=== PATIENT | male | born 1935 | race Caucasian/White ===

== ENCOUNTER 2020-02-14 01:51 | Outpatient (CLI) | payer MEDICARE, SELFPAY ==
[2020-02-14 18:01] LABS: SARS-CoV-2 RNA PCR Negative
== END 2020-02-14 01:52 | disposition home or self-care (01) ==
LOC: ANHCOVIDDT 01:51
PROVIDERS: PCP Internal Medicine; Visit Provider Internal Medicine Gastroenterology
DX: Z01.812 Encounter for preprocedural laboratory examination (principal); Z20.828 Contact with and (suspected) exposure to other viral communicable diseases
CPT/HCPCS: 87635; C9803; U0003

== ENCOUNTER 2020-02-17 04:18 | Day surgery (SDC) | payer MEDICARE, SELFPAY ==
[2020-02-12 09:48] VITALS: BMI 26.5
[2020-02-17 08:06] VITALS: BP 148/87; PULSE 87; RESP 18; TEMP 36.4; O2SAT 100; BMI 27.8
--- NOTE | 2020-02-17 08:15 | WPDANESEPPF ---
Anes - Initial Pre Proc Eval Procedure: Operation Date: 02/17/20 09:00 Proposed Procedures p Esophagogastroduodenoscopy - Silvestre Herrera MD Date/Time: 02/17/20 08:15 Surgeon: Silvestre Herrera MD Pre Op Diagnosis: GI BLeed,Melena,Hx of Gastric Ulcer Patient Data Age: 84 Gender: M Height: 5 ft 10 in Weight: 87.9 kg Last Vital Signs Temp 97.5 F L 02/17/20 08:06 Pulse 87 02/17/20 08:06 Resp 18 02/17/20 08:06 BP 148/87 H 02/17/20 08:06 Pulse Ox 100 02/17/20 08:06 Allergies Allergy/AdvReac Type Severity Reaction Status Date / Time No Known Allergies Allergy Verified 02/17/20 07:57 Home Medications Medication Instructions Recorded Confirmed Type aspirin [Aspir-81] 81 mg PO DAILY 06/16/19 02/12/20 History calcium carbonate [Calcium 600] 1,200 mg PO DAILY 06/16/19 02/12/20 History glucos sul 0PVa-qnw-uwtou-C-Mn 3 cap PO DAILY 06/16/19 02/12/20 History [Glucosamine Chondroitin] pantoprazole 40 mg PO BID 06/16/19 02/12/20 History mhgrpyoz-bmg-lctkq-vit K-lycop 1 tablet PO DAILY 02/12/20 02/12/20 History [Men's Multivitamin] Patient hx anesthesia problems: none Family hx anesthesia problems: none PMFSH Past Medical History Medical History (Updated 02/17/20 @ 08:14 by Sebastian Arreola MD) Bronchitis CVA (cerebral vascular accident) signs of CVA; no etiology; has right sided weakness GERD (gastroesophageal reflux disease) Anes - Eval Final PreProcedure Day of Procedure 02/17/20 08:15 Patient weight: normal Heart: regular rate and rhythm Lungs: clear to auscultation Airway: Mallampati scale class II Neurological: alert and oriented Last oral intake: >/= 8 hours ASA classification: III Emergent: no Anesthetic plan: proceed Anesthesia type and monitoring: general GIVS and standard monitoring Informed Consent: The patient's anesthetic plan and its attendant risks and benefits were discussed with the patient/family/POA. Questions were solicited and answers provided to the satisfaction of the patient/family/POA.
[2020-02-17] MEDS: LACTATED RINGERS 1,000 ML 150 ML IV CONT (08:24)
--- NOTE | 2020-02-17 08:24 | P.CONGI_ITS ---
Assessment and Plan Assessment and plan (1) Melena: Code(s): K92.1 - Melena Status: Acute Assessment and Plan: Patient with recent passage of melena associated with decrease in hemoglobin consistent with recent GI blood loss. Patient has a history of gastric ulcer last year. Plan is to restart the proton pump inhibitor which has been done already. Follow-up EGD advised at this time. Continue monitor hemoglobin electively as an outpatient. Further recommendations will be given after endoscopy. (2) History of gastric ulcer: Code(s): Z87.19 - Personal history of other diseases of the digestive system Status: Acute (3) Anemia: Code(s): D64.9 - Anemia, unspecified Status: Acute GI Consult Note Consult date/time: 02/17/20 08:24 HPI: Mark Payton is a 84 year old male Seen in evaluation at the request of Dr. Dafne Wyman. Patient has a history of gastric ulcer in March of 2019. 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 Patient initially maintained on pantoprazole this ultimately was discontinued for 1 month. In early January of 2020 patient began to feel weak and dizzy and pass some black melenic stools. His pantoprazole was restarted. Patient refused going to the hospital. He states that his bowel habits are repeat turn to normally presents today for follow-up EGD. Patient denies any abdominal pain. Denies any heartburn. He denies any difficulty swallowing. His stools as stated return to normal color. Recent blood count reveals a hemoglobin of 9 .2, hematocrit 29, MCV of 86. Review of Systems Review of Systems: All systems reviewed & are unremarkable except as noted in HPI and below PMFSH Past Medical History Medical History Bronchitis CVA (cerebral vascular accident) signs of CVA; no etiology; has right sided weakness GERD (gastroesophageal reflux disease) Meds Home Medications and Allergies Home Medications Medication Instructions Recorded Confirmed Type aspirin [Aspir-81] 81 mg PO DAILY 06/16/19 02/12/20 History calcium carbonate [Calcium 600] 1,200 mg PO DAILY 06/16/19 02/12/20 History glucos sul 9ZNg-qwx-zrsav-C-Mn 3 cap PO DAILY 06/16/19 02/12/20 History [Glucosamine Chondroitin] pantoprazole 40 mg PO BID 06/16/19 02/12/20 History cnrxyech-kds-uebss-vit K-lycop 1 tablet PO DAILY 02/12/20 02/12/20 History [Men's Multivitamin] Allergies Allergy/AdvReac Type Severity Reaction Status Date / Time No Known Allergies Allergy Verified 02/17/20 07:57 Vital Signs Vital Signs - 24 hr 02/17/20 08:06 Temperature 97.5 F L Pulse Rate 87 Respiratory Rate 18 Blood Pressure 148/87 H Pulse Oximetry 100 Exam Narrative: Exam Narrative: Physical exam reveals patient to be alert. Vital signs stable. HEENT exam unremarkable. He is anicteric. Lungs are clear to auscultation and percussion. Heart is without murmur or extra sounds. Abdominal exam bowel sounds are present soft nontender with no organomegaly. Rectal exam is deferred at this time.
[2020-02-17 08:54] VITALS: BP 128/80; PULSE 77; RESP 22; O2SAT 100
[2020-02-17 09:04] VITALS: BP 134/76; PULSE 74; RESP 19; O2SAT 100
[2020-02-17 09:14] VITALS: BP 136/87; PULSE 75; RESP 15; O2SAT 100
== END 2020-02-17 09:25 | disposition home or self-care (01) ==
PROVIDERS: PCP Internal Medicine; Visit Provider Internal Medicine Gastroenterology
PROC: 0DJ08ZZ Inspection of Upper Intestinal Tract, Via Natural or Artificial Opening Endoscopic (ICD-10-PCS; CPT 43235; principal; 2020-02-17 09:00)
DX: K92.1 Melena (principal); Z87.19 Personal history of other diseases of the digestive system; D62 Acute posthemorrhagic anemia; Q39.4 Esophageal web; K29.60 Other gastritis without bleeding; K25.3 Acute gastric ulcer without hemorrhage or perforation
CPT/HCPCS: 43239; 88305; J2704; J7120

== ENCOUNTER 2020-12-06 00:25 | Emergency (ER) | payer MEDICARE, SELFPAY ==
[2020-12-06] VITALS (37 sets, daily range): BP systolic 109–167; BP diastolic 74–135; PULSE 87–98; RESP 15–27; TEMP 36.2; O2SAT 91–97
--- NOTE | ~2020-12-06 | CT_ITS ---
EXAMINATION:CT diagnostic chest wo con DATE: 12/06/2020 01:42 INDICATION: Chest injury. Fall. TECHNIQUE: Computed tomography (CT) of the chest was performed without intravenous contrast. Automate d exposure control and iterative reconstruction technique were employed. The dose-length product (DLP ) was 260.40 mGy-cm. COMPARISON: Chest 2 views 11/24/2014 FINDINGS: There is mild atelectasis bilaterally. No pleural effusion. The heart size is normal. There are coronary artery calcifications. No pericardial effusion. There is ectasia of ascending aorta aspen suring 4.3 cm. There is a moderate-sized sliding hiatal hernia. There are cysts in the liver measurin g up to 1.8 cm. There is levoscoliosis of upper thoracic spine. There are chronic burst fractures of T10 T12 and L1. There is mild chronic anterior wedging of T7 and T8 vertebral bodies. There are chron ic burst fractures of L1 and L2. IMPRESSION: 1. Moderate-sized sliding hiatal hernia. 2. 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 Reviewed, dictated and finalized at location A.
--- NOTE | ~2020-12-06 | CT_ITS ---
EXAMINATION: CT lumbar spine wo con DATE: 12/06/2020 01:42 INDICATION: Low back injury. TECHNIQUE: Computed tomography (CT) of the lumbar spine was performed without intravenous contrast. A utomated exposure control and iterative reconstruction technique were employed. The dose-length produ ct was 714.24 mGy-cm. COMPARISON: None FINDINGS: There is 5 degrees dextrocurvature of lumbar spine. There is a chronic burst fracture of T1 2 with 3/5 loss of height centrally and retropulsion of bone 3 mm images of the spinal canal. There i s a chronic burst fracture of L1 with 3/5 loss of height and 3 mm retropulsion of bone into central s randolph canal. There is a compression fracture of L3 with 1/5 loss of height. There is moderately decre ased disc height at L3-L4 and L5-S1 and mildly decreased disc height at L1-L2, L2-L3, and L4-L5. The following disc levels are specifically discussed: L1-L2: The disc is bulging. There is mild bilateral facet joint osteoarthritis. There is moderate rig ht and mild left neural foraminal stenosis. There is mild central canal stenosis. L2-L3: The disc is bulging. There is moderate bilateral facet joint osteoarthritis. There is mild rig ht and moderate left neural foraminal stenosis. There is mild central canal stenosis. L3-L4: The disc is bulging. There is mild bilateral facet joint osteoarthritis. There is moderate sneha ateral neural foraminal stenosis. There is moderate central canal stenosis. L4-L5: The disc is bulging. There is severe bilateral facet joint osteoarthritis. There is moderate b ilateral neural foraminal stenosis. There is severe central canal stenosis. L5-S1: The disc is bulging. There is severe bilateral facet joint osteoarthritis. There is mild bilat eral neural foraminal stenosis. There is mild central canal stenosis. IMPRESSION: 1. Acute L3 compression fracture. 2. Severe lumbar spondylosis. Reviewed, dictated and finalized at location A.
--- NOTE | 2020-12-06 00:41 | ECG_ITS ---
Measurements Intervals [place] Rate: 89 P: 44 FL: 186 QRS: -20 QRSD: 102 T: 24 QT: 365 QTc: 446 Interpretive Statements SINUS RHYTHM ATRIAL PREMATURE COMPLEXES INCOMPLETE RIGHT BUNDLE BRANCH BLOCK INFERIOR INFARCT, AGE INDETERMINATE ABNORMAL ECG Electronically Signed On 12-06-2020 7:18:54 CDT by Alexi Mckeon D.O.
--- NOTE | 2020-12-06 01:14 | ED.FALL ---
HPI - Fall General Chief Complaint: Fall Stated Complaint: back pain/ fall Time Seen by Provider: 12/06/20 01:06 Source: RN notes reviewed History of Present Illness HPI Narrative: Patient presents to emergency department from home via EMS for a fall. Patient says he was walking on a rug when he began to slip backwards. He states that he began to stumble backwards trying to catch himself and fell landing on his buttocks and his back he complains of pain in the lower back as well as pain in the anterior chest he denies striking his head or any loss of consciousness he states the chest pain is located over the midsternal lower chest and is worse with movement and deep inspiration she is at lower back pain is worse with movement as well he denies any vision changes, shortness of breath, abdominal pain nausea vomiting diarrhea numbness or tingling in the extremities or any other symptoms Related Data Home Medications Medication Instructions Recorded Confirmed aspirin [Aspir-81] 81 mg PO DAILY 06/16/19 02/12/20 calcium carbonate [Calcium 600] 1,200 mg PO DAILY 06/16/19 02/12/20 glucos sul 7GTf-qqa-wmlyl-C-Mn 3 cap PO DAILY 06/16/19 02/12/20 [Glucosamine Chondroitin] pantoprazole 40 mg PO BID 06/16/19 02/12/20 deavvboc-kkk-owffo-vit K-lycop 1 tablet PO DAILY 02/12/20 02/12/20 [Men's Multivitamin] Allergies Allergy/AdvReac Type Severity Reaction Status Date / Time No Known Allergies Allergy Verified 02/17/20 07:57 Review of Systems Review of Systems: Narrative: Gen.: Denies fevers or chills Eyes: Denies eye pain or visual change ENT: Denies congestion Respiratory: Denies shortness of breath or cough CV: Reports anterior chest pain GI: Denies abdominal pain nausea, emesis or diarrhea Musculoskeletal: Reports low back pain Neuro: Denies numbness, tingling, weakness or focal weakness Skin: Denies rash Except as documented, all other systems reviewed and negative [facility] Past Medical History Medical History (Updated 12/06/20 @ 05:04 by John Perez DO) Bronchitis CVA (cerebral vascular accident) signs of CVA; no etiology; has right sided weakness GERD (gastroesophageal reflux disease) Social History Social History (Updated 12/06/20 @ 03:45 by John Perez DO) Smoking status: Never smoker Exam Narrative: Exam Narrative: APPEARANCE: No acute distress, nontoxic, resting in bed EYES: EOMI, PERRL HEENT: Normocephalic, atraumatic, OMM Neck: Supple no midline tenderness palpation RESPIRATORY: No respiratory distress Clear to auscultation bilaterally with no rhonchi wheezing or rales. CARDIOVASCULAR: Regular rate and rhythm without murmurs rubs or gallops. Chest: Tender palpation over the anterior inferior chest just to the right of the sternum with point tenderness present pain increased with deep respiration and movement of the torso ABDOMINAL: Soft, nontender, nondistended, no rebound or guarding MUSCULOSKELETAl: Moves all extremities. No clubbing, cyanosis or edema. Back: No midline thoracic lumbar transportation for patient bilateral paravertebral muscles L2-5 NEURO: Awake and alert x 3. Following commands, speech normal, no focal deficits SKIN:: Warm, dry. No rashes lesions or abrasions PSYCHIATRIC: Normal affect/mood, Course Course Emergency Course: Discussed with radiologist patient's fracture he states that this is a stable compression fracture Patient states pain is improved with tramadol Patient able to get up and ambulate in the emergency department with no difficulty patient son present states that patient was at home with son and son's Discussed with patient results of workup and diagnosis. Discussed need for follow-up with primary care, proper use of medication, and reasons to return to the emergency department. Patient understands and agrees to current treatment plan Vital Signs Vital signs: Vital Signs Temperature 97.2 F L 12/06/20 00:24 Pulse Rate 89 12/06/20 00:24 Respirator
[2020-12-06] MEDS: ACETAMINOPHEN 500 MG TABLET 1000 MG PO (01:51)
[2020-12-06] MEDS: traMADol HCL (*CRX) 50 MG TABLET PO (03:13)
[2020-12-06 03:39] LABS: Basophils Absolute Auto 0.1 K/mm3 (0.0-0.1); Basophils Percent Auto 0.7 % (0.2-1.2); Eosinophils Absolute Auto 0.1 K/mm3 (0-0.3); Eosinophils Percent Auto 0.6 % (0-4.4); Hematocrit 42.9 % (42.0-52.0); Hemoglobin 13.9 g/dL (14.0-18.0); Immature Granulocyte Percent A 0.7 % (0-0.5); Lymphocytes Absolute Auto 1.53 K/mm3 (0.9-3.2); Lymphocytes Percent Auto 10.9 % (18.3-44.2); Mean Corpuscular HGB Conc 32.4 g/dl (32-36); Mean Corpuscular Hemoglobin 27.7 pg (26-34); Mean Corpuscular Volume 85.5 fl (80-100); Mean Platelet Volume 10.3 fl (7.4-10.4); Monocytes Absolute Auto 0.8 K/mm3 (0.1-0.6); Monocytes Percent Auto 5.5 % (2.6-8.5); Neutrophils Absolute Auto 11.5 K/mm3 (1.3-6.7); Neutrophils Percent Auto 81.6 % (45.5-73.1); Platelet Count Result 252 k/mm3 (150-375); Red Blood Count 5.02 M/mm3 (4.6-6.20); Red Cell Distribution Width 14.6 % (11.5-14.5); White Blood Count 14.1 K/mm3 (4.5-10.0)
[2020-12-06 03:50] LABS: INR 0.9
[2020-12-06 03:51] LABS: Partial Thromboplastin Time 28.3 SECONDS (22.3-36.8)
[2020-12-06 04:02] LABS: Alanine Aminotransferase 17 U/L (4-50); Albumin Level 4.1 g/dL (3.5-5.1); Alkaline Phosphatase 89 U/L (38-126); Anion Gap 8 mmol/L (8-16); Aspartate Amino Transferase 30 U/L (17-59); Bilirubin,Total 0.4 mg/dL (0.2-1.3); Blood Urea Nitrogen 24 mg/dL (9-20); Calcium 9.5 mg/dL (8.4-10.2); Carbon Dioxide 26 mmol/L (22-30); Chloride 106 mmol/L (98-107); Estimated CRCL calculation 44 ml/min; Estimated Glomerular Filt Rate > 60; Glucose 118 mg/dL (75-110); Potassium 4.2 mmol/L (3.4-5.0); Sodium 140 mmol/L (137-145)
[2020-12-06 04:13] LABS: Troponin I < 0.012 ng/mL (0.000-0.034)
== END 2020-12-06 06:10 | disposition home or self-care (01) ==
PROVIDERS: Emergency Provider Emergency Medicine; PCP Internal Medicine
DX: S32.048A Other fracture of fourth lumbar vertebra, initial encounter for closed fracture (principal); R07.89 Other chest pain; Z79.82 Long term (current) use of aspirin; I69.951 Hemiplegia and hemiparesis following unspecified cerebrovascular disease affecting right dominant side; K21.9 Gastro-esophageal reflux disease without esophagitis; M47.816 Spondylosis without myelopathy or radiculopathy, lumbar region; W01.0XXA Fall on same level from slipping, tripping and stumbling without subsequent striking against object, initial encounter; I49.1 Atrial premature depolarization; I45.10 Unspecified right bundle-branch block; R94.31 Abnormal electrocardiogram [ECG] [EKG]
CPT/HCPCS: 36415; 71250; 72131; 80053; 84484; 85025; 85610; 85730; 93005; 99284; A9270

== ENCOUNTER 2020-12-13 10:31 | Outpatient (CLI) | payer MEDICARE, SELFPAY ==
--- NOTE | ~2020-12-13 | US_ITS ---
EXAMINATION: US venous doppler LE RT EXAM DATE: 12/13/2020 11:00 INDICATION: Right leg edema. TECHNIQUE: Multiple grayscale, color flow and Doppler images of the right lower extremity deep venous system were obtained and reviewed. There is no prior study for comparison. FINDINGS: The right common femoral, femoral and profunda veins demonstrate normal color flow, respira tory variation, augmentation and compressibility. Compressibility, color flow confirmed within the r ight popliteal, posterior tibial, peroneal, and greater saphenous veins. IMPRESSION: 1. No right lower extremity deep venous thrombosis. Reviewed, dictated and finalized at location B.
== END 2020-12-13 10:32 | disposition home or self-care (01) ==
PROVIDERS: PCP Internal Medicine; Visit Provider Internal Medicine
DX: R60.0 Localized edema (principal)
CPT/HCPCS: 93971

== ENCOUNTER 2021-03-01 12:45 | Outpatient (RCR) | payer MEDICARE, SELFPAY ==
--- NOTE | 2021-02-01 13:49 | PTOPEVAL ---
Thank you for referring Mark Payton to [facility].? The patient is scheduled to be seen for therapy? 1 x/week for 8 weeks. Please review, sign, date and return this plan of care ANDREW. I agree with and certify that the following plan of care is medically necessary. Referring Physician Date Attending Provider: Barron Wyman, Diagnosis balance impairment, gt abnormalities Onset 12/06/20 Cause fall Additional Evaluation Detail He has chair lift with multiple ww on each level. He does not performing the cooking or cleaning. MRI from from fall: 1. Acute L3 compression fracture. 2. Severe lumbar spondylosis Subjective Information Pt had a fall backwards on 12/06 Query Text:As Reported By Patient. He was using a cane when Family the fall happened. He reports a decline in balance over the past few months. Reports his reaction time has decreased. He spends most of day on the computer. He is now performing seated exercise given by his recent therapist. He is performing 1-2x/day.He reports difficulty getting off low surfaces or seats without arm support. Prior Level of Function Home Setting Home Type House Living Situation With Spouse Mobility Assistive Devices (Used Last 3 Walker, Wheeled Months) Pain Assessment Self Report Pain Level 0 Pain Score Pain Score 0: Self Report Lower Extremity Muscle Strength Testing General Lower Extremity Strength Gross Lower Extremity Strength grossly 4/5 in seated position Upper Extremity Muscle Strength Testing General Upper Extremity Strength Gross Upper Extremity Strength Comments grossly 4-/5 sneha shoulders Transfer Assessment Chair Transfer Assessment Chair Transfer Assistive Devices None Ambulation Assistive Devices Walker, Wheeled Chair Transfer Destination Ambulatory Sit to Stand Chair Transfer Ability Independent Chair Transfer Comments several attempts to stand from regular chair with arms. Balance Assessment INMAN Balance Evaluation Total Score (27/56 points) Time Up Go (TUG) Timed Up and Go Test (TUG) (Seconds) 34 Assistive Devices Walker, Wheeled 5 Time Sit to Stand Time in Seconds 22 5 Time Si
--- NOTE | 2021-03-01 14:09 | PTOPEVAL ---
Discharge Summary Therapy Note Thank you for referring Mark Payton to [facility].? He has attended 6 therapy visits to address functional mobility, balance and strengthening. He demonstrates improved functional mobility and decreased fall risk. He has partially achieved his therapy goals at this time. See summary below for detail of progress. Will DC skilled therapy services at this time. Please review, sign, date and return this discharge summary ANDREW. I agree with and certify that the following plan of care is medically necessary. Referring Physician Date Attending Provider: Barron Wyman, Problem Diagnosis balance impairment, gt abnormalities Onset 12/06/20 Cause fall Additional Evaluation Detail He has chair lift with multiple ww on each level. He does not performing the cooking or cleaning. MRI from from fall: 1. Acute L3 compression fracture. 2. Severe lumbar spondylosis Subjective Information He is using the walker at home. Query Text:As Reported By Patient/ Denies any falls at home Family since start of therapy. He does feel the band exercises help, but has not been consistent with performing. He cont to spend most of day on the computer. He is not consistent with getting up every 30 minutes. Pain Assessment Timing of Pain Assessment Timing of Pain Assessment Pre-Treatment Self Report Self Report Pain Level 0 Pain Score Pain Score 0: Self Report Lower Extremity Muscle Strength Testing General Lower Extremity Strength Gross Lower Extremity Strength grossly 4+/5 in seated position Balance Assessment INMAN Balance Evaluation Total Score (34/56 points) Timed Up and Go Test (TUG) (Seconds) 42 Assistive Devices Walker, Wheeled Comments increased time required with turns 5 Time Sit to Stand Time in Seconds 27 5 Time Sit to Stand Comments use of UE, 50% of the time Query Text:Normative Data: If Greater demonstrated release of of Than 15 Seconds, 74% Increase Risk for chair to full upright position Recurrent Falls Gait Assessment Ambulation Assistive Devices Walker, Wheeled Ambulation Distance 125 Query Text:(Feet) Ambulation Direction Forward Ambulation Ability Independent Cues Needed For Ambulation Verbal
== END 2021-03-01 15:55 | disposition home or self-care (01) ==
LOC: ANHPT 12:45
PROVIDERS: PCP Internal Medicine; Visit Provider Internal Medicine
DX: R26.89 Other abnormalities of gait and mobility (principal)
CPT/HCPCS: 97110; 97112; 97116; 97162; 97530